=== PATIENT | female | born 1970 | race Caucasian/White ===

== ENCOUNTER → 2018-09-29 13:00 | Outpatient (CLI) | payer BC, SELFPAY ==
[2018-09-29 14:30] LABS: Estradiol 115.2 pg/mL; Follicle Stimulating Hormone 9.6 mIU/mL; Free T3 2.5 pg/mL (2.18-3.98); T4 Free Direct 0.92 ng/dL (0.76-1.46); Thyroid Stim Hormone (TSH) 2.51 uIU/mL (0.358-3.74)
[2018-09-29 14:37] LABS: Hemoglobin A1c 6.1 % (4.2-6.3)
[2018-10-04 12:56] LABS: HPV Reflexed? NOT INDICATED
== END ==
PROVIDERS: Visit Provider Obstetrics & Gynecology
DX: N93.0 Postcoital and contact bleeding (principal); Z12.4 Encounter for screening for malignant neoplasm of cervix
CPT/HCPCS: 36415; 82670; 83001; 83036; 84144; 84403; 84439; 84443; 84481; 88175; G0145

== ENCOUNTER 2018-11-07 09:37 | Day surgery (SDC) | payer BC, SELFPAY ==
--- NOTE | 2018-10-30 19:44 | PCM.HP.STD ---
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 Lives: Spouse/ Significant Other Smoking Status: Never smoker Tobacco Use: Non-smoker Alcohol: Rare Drugs: None - *Family History Paternal History Items: Heart Disease - myocardial infarct Maternal History Items: Cancer - breast cancer Review of Systems Constitutional: Denies: Chills, Fever, Weight Change HEENT: Denies: Difficulty Hearing, Difficulty Swallowing, Nasal bleeding, Nasal Congestion, Sore Throat Cardiovascular: Denies: Chest Pain, Palpitations Respiratory: Denies: Shortness of Breath, Wheezing Gastrointestinal: Denies: Constipation, Diarrhea, Nausea, Vomiting Genitourinary: Denies: Dysuria, Frequency, Hematuria, Incontinence, Urgency Musculoskeletal: Denies: Joint Pain, Muscle pain Skin: Denies: Lesions, Skin Changes Neurological: Denies: Focal weakness, Numbness Psychiatric: Denies: Anxiety, Depression Endocrine: Denies: Heat/ Cold Intolerance Hematologic/ Lymphatic: Denies: Easy Bleeding VTE Information - Inpt Only VTE Present on Admission: No VTE Mechan Device Prophylaxis: None VTE Pharm Prophylaxis ordered?: No Reason prophylaxis not ordered:: Procedure Not Indicated Subjective: Healthy appearing female. No distress. - Physical Exam General: No apparent distress, Well developed, Well nourished HEENT: PERRLA, EOMI, Normocephalic Neck: No Nodes, No Nuchal Rigidity, Thyroid Normal Size and Texture Lungs: Clear to auscultation - bilaterally Cardiovascular: Regular rate, No murmurs, No rub noted Abdomen: Soft, Non Tender, Non-Distended, - - No guarding, hepatomegaly, splenomegaly, rebound tenderness Extremities: No clubbing, No cyanosis, No edema, No Calf Tenderness Skin: No rashes, Other - No ulcers, lesions Musculoskeletal: No Tenderness to Palpation of Joints or Extremities, No Muscle Wasting Lymphatic: No Cervical, Supraclavicular, or Inguinal Adenopathy Neurological: Cranial nerves II-XII grossly intact Psych/Mental Status: Alert and oriented to time, place, person, mood and affect Assessment/Plan All Active Problems Irregular menstrual bleeding (Acute) 1. Irregular bleeding of menses with endometrial mass suspected polyp D and C, Hysteroscopy and polypectomy is recommended the preop preparation, the intraop procedures and the postop recovery reviewed. The risks of bleeding, infection and other organ damage including bladder, bowel and uterine perforation reviewed, accepted and consented.
--- NOTE | 2018-10-30 19:49 | HP.PCM_ITS ---
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 Lives: Spouse/ Significant Other Smoking Status: Never smoker Tobacco Use: Non-smoker Alcohol: Rare Drugs: None - *Family History Paternal History Items: Heart Disease - myocardial infarct Maternal History Items: Cancer - breast cancer Review of Systems Constitutional: Denies: Chills, Fever, Weight Change HEENT: Denies: Difficulty Hearing, Difficulty Swallowing, Nasal bleeding, Nasal Congestion, Sore Throat Cardiovascular: Denies: Chest Pain, Palpitations Respiratory: Denies: Shortness of Breath, Wheezing Gastrointestinal: Denies: Constipation, Diarrhea, Nausea, Vomiting Genitourinary: Denies: Dysuria, Frequency, Hematuria, Incontinence, Urgency Musculoskeletal: Denies: Joint Pain, Muscle pain Skin: Denies: Lesions, Skin Changes Neurological: Denies: Focal weakness, Numbness Psychiatric: Denies: Anxiety, Depression Endocrine: Denies: Heat/ Cold Intolerance Hematologic/ Lymphatic: Denies: Easy Bleeding VTE Information - Inpt Only VTE Present on Admission: No VTE Mechan Device Prophylaxis: None VTE Pharm Prophylaxis ordered?: No Reason prophylaxis not ordered:: Procedure Not Indicated Subjective: Healthy appearing female. No distress. - Physical Exam General: No apparent distress, Well developed, Well nourished HEENT: PERRLA, EOMI, Normocephalic Neck: No Nodes, No Nuchal Rigidity, Thyroid Normal Size and Texture Lungs: Clear to auscultation - bilaterally Cardiovascular: Regular rate, No murmurs, No rub noted Abdomen: Soft, Non Tender, Non-Distended, - - No guarding, hepatomegaly, splenomegaly, rebound tenderness Extremities: No clubbing, No cyanosis, No edema, No Calf Tenderness Skin: No rashes, Other - No ulcers, lesions Musculoskeletal: No Tenderness to Palpation of Joints or Extremities, No Muscle Wasting Lymphatic: No Cervical, Supraclavicular, or Inguinal Adenopathy Neurological: Cranial nerves II-XII grossly intact Psych/Mental Status: Alert and oriented to time, place, person, mood and affect Assessment/Plan All Active Problems Irregular menstrual bleeding (Acute) 1. Irregular bleeding of menses with endometrial mass suspected polyp D and C, Hysteroscopy and polypectomy is recommended the preop preparation, the intraop procedures and the postop recovery reviewed. The risks of bleeding, infection and other organ damage including bladder, bowel and uterine perforation reviewed, accepted and consented.
[2018-11-03 13:10] LABS: Hematocrit 40.2 % (37-47); Hemoglobin 13.3 g/dl (12.0-15.0); Mean Corp Hgb Conc 33.1 g/gl (32-36); Mean Corpuscular Hgb 29.6 pg (27.0-32.0); Mean Corpuscular Volume 89.5 fL (81-99); Mean Platelet Vol. 10.2 fl (6.2-12.0); Platelet Count 269 K/mm3 (150-450); RBC Distribution Width CV 13.8 % (11.6-14.6); RBC Distribution Width SD 45.6 fl (35.1-43.9); Red Blood Count 4.49 M/mm3 (4.2-5.4); White Blood Count 5.7 K/mm3 (4.4-11.0)
[2018-11-03 13:12] LABS: Scan Indicated on CBC? Y/N NO
[2018-11-03 13:26] LABS: International Normalized Ratio 1.1; Prothrombin Time (Protime)PT. 13.8 SECONDS (11.7-14.9)
[2018-11-03 13:27] LABS: Partial Thromboplast Time 31.4 Seconds (24.1-36.2)
[2018-11-07] VITALS (7 sets, daily range): BP systolic 99–121; BP diastolic 64–80; PULSE 66–82; RESP 16–18; TEMP 36.3–37; O2SAT 98–100; BMI 26.3
--- NOTE | 2018-11-07 | EMB_PTH ---
PATIENT: ROGELIO HERNANDEZ [place] [facility] [place][id number] AGE/SX: 48/F ROOM: RE11/07/[address]: Dr. July Loo MD : 1970 BED: DIS: 11/07/2018 SPEC #: [id number] RECD: 11/07/18 14:09 STATUS: JUAN MANUEL REAlirio #: [id number] OLLIE: 11/07/18 00:[address]: July Loo DEPT: SURGICAL PATHOLOGY RECD BY: Antonio Zamudio ENTERED: 11/07/18 14:09 SP TYPE: ENDOM BX/C AWAIS DR: Dr. Merrick Medina MD Tissues: Endometrium, NOS Procedures: Surgery Specimen Level IV HEADER OPERATION: Hysteroscopy, D & C, polypectomy PRE-OP DIAGNOSIS: Irregular bleeding of menses and endometrial mass suspected polyp TISSUE SUBMITTED: Endometrial curettings MICROSCOPIC DIAGNOSIS Endometrium, curettings: Secretory endometrium. Rare fragments of benign endocervix. AM:amy 11/08/18 MICROSCOPIC DESCRIPTION Slides are reviewed. GROSS DESCRIPTION Received in fixative is one container labeled with the patient's name and designated endometrial curettings. The specimen consists of multiple irregular fragments of reddish-pink soft tissue and clotted blood that in aggregate measure 2 x 1.5 x 0.5 cm. The specimen is totally submitted in three cassettes. / CE:amy 11/07/18 TC:5 CPT: 68158
[2018-11-07 10:19] LABS: Internal QC Validated? YES +Cl - CLEAR BKGD
[2018-11-07 10:23] LABS: Pregnancy, Urine Negative Negative
--- NOTE | 2018-11-07 12:11 | PCM.OPRPT ---
Problem List (1) Irregular menstrual bleeding Status: Acute Report of Operation Date of Procedure: 11/07/18 Pre-Operative Diagnosis: Thickened endometrium and suspected polyp Post-Operative Diagnosis: Same Surgery/Procedure Performed:: D&C, hysteroscopy Description of Surgical Findings:: Uterus was sounded to approximately 9-1/2 cm in anteflexed position. Uterus is fully mobile. Bilateral adnexa are noted to be benign. Cavity reveals the majority of the tissue was on the posterior part of the endometrial cavity with no specific pole of the Type of Anesthesia:: Local, MAC Anesthesiologist: Jr Phelps Special Medications: Cefotetan 2 grams IV Specimen's removed: Endometrium Drains: None Estimated Blood Loss (mL): Minimal Fluids Replaced: Lactated Ringer Description of Procedure: Patient presented to the operating room and n.p.o. status. She was placed on the operating room table. She had monitors placed and underwent a MAC anesthetic. Appropriate timeout had occurred upon entry into the room. After adequate MAC was noted patient was placed in dorsal position via the Jeff stirrups. She was prepped and draped in normal sterile fashion. Straight catheter was used to empty the bladder of all remaining urine which was clear. The the patient underwent draping of the covers. Second timeout this occurred prior to commencement of the procedure to the vaginal vault area and antilipid the cervix was grasped and elevated with a single tooth tenaculum. Uterus was sounded to approximately 1% lidocaine was placed to the 4 quadrants of the cervix the cervical eyes was easily dilated to a comminuted 83 mm hysteroscope was placed into the endometrial cavity. Investigation of the endometrium occurred with followed by the removal of the. Sharp curettage and polyp forceps removal of all tissue occurred and was away for pathological evaluation. Placing the hysteroscope into the endometrial cavity was noted that all tissue. Were then removed from the vaginal region. The sponge and instrument counts were correct x2. Patient was awakened in stable condition to be taken to recovery room for discharge to home setting later Grafts/Implants Used: None - Complications None - Admit VTE Documentation VTE Present on Admission: No VTE Mechan Device Prophylaxis: SCD's VTE Pharm Prophylaxis ordered?: No Reason prophylaxis not ordered:: Procedure Not Indicated
--- NOTE | 2018-11-07 13:22 | DCINST_ITS ---
Discharge Diet: No Restrictions - increase water intake to a minimum of 120 ounces daily x 3 days Discharge Activity: Return to Normal Activity, May Shower, May Take a Tub Bath - in 2 weeks., - - ambulate frequently the week after surgery May shower in (days): 0 - TODAY May resume sexual activity in: 2 weeks Weight Bearing Status: Full weight bearing Lifting Restrictions: none Call your doctor if your incision/area has: Sudden Increased Bleeding Call your doctor if you observe: Fever of 101 or Higher, Inability to urinate, Inability to have a bowel movement, Using more than one pad per hour Allergies/Adverse Reactions: Allergies Sulfa (Sulfonamide Antibiotics) Allergy (Verified 10/31/18 15:47) Hives Medications to take at Discharge Fexofenadine/Pseudoephedrine [[place]-D 24 Hour Tablet] 1 each PO DAILY 10/31/18 Oxycodone HCl/Acetaminophen [Percocet 5/325] 1 - 2 tablet PO Q4H PRN PRN 7 Days #10 tablet 11/07/18 The following prescriptions were given: Oxycodone HCl/Acetaminophen [Percocet 5/325] 1 - 2 tablet PO Q4H PRN PRN 7 Days #10 tablet PRN Reason: Pain Primary Care Physician: Merrick Medina MD [Primary Care Provider] - Test Results: Test results from this visit will be discussed in further detail at your follow- up appointment, if applicable. Please Follow Up With: July Loo MD When: 1-2 weeks postop
== END 2018-11-07 13:59 | disposition home or self-care (01) ==
LOC: SDC 09:44 → AC 09:54
PROVIDERS: Family Provider Family Medicine; PCP Family Medicine; Referring Provider Obstetrics & Gynecology; Visit Provider Obstetrics & Gynecology
PROC: 0UDB8ZZ Extraction of Endometrium, Via Natural or Artificial Opening Endoscopic (ICD-10-PCS; CPT 58558; principal; 2018-11-07 11:20)
DX: N92.6 Irregular menstruation, unspecified (principal); R93.89 Abnormal findings on diagnostic imaging of other specified body structures
CPT/HCPCS: 00952; 58558; 36415; 81025; 85027; 85610; 85730; 86850; 86900; 88305; J7120; J2405